=== PATIENT | female | born 1985 | race Caucasian/White ===

== ENCOUNTER 2025-07-03 20:19 | Outpatient (REF) | payer BC, SELFPAY ==
--- OUTSIDE RECORDS SUMMARY | 2025-07-03 13:00 | XMS_ITS | Encounter Summary ---
Author Organization [facility] Address [address] [place] [address] Care Team Providers Care Tanning Wheel Operator Name Role Phone Unavailable Primary Care Provider Unavailabl e Reason for Visit * ReasonCommentsWell Women Visit Encounter Details DateTypeDepartmentCare Team (Latest Contact Info)Hwdjjgksfth92/22/2025 1:00 PM ESTProcedure Visit [facility] Jose Eduardo TAYLOR [address] [facility] [address] [place], [phone] Bridget Mercer PA [address] [facility] [address] [place], [place] [address] Well woman exam with routine gynecological exam; Encounter for initial prescription of contraceptive pills; Abdominal cramping Social History Tobacco UseTypesPacks/DayYears UsedDateSmoking Tobacco: Some DaysCigarettes Alcohol UseStandard Drinks/WeekCommentsYes0 (1 standard drink = 0.6 oz pure alcohol)1 or 2 drinks on typical day . caffeine: 1-2 cups/day coffee. soda/pop CommentsUnknownSex and Gender InformationValueDate RecordedSex Assigned at BirthNot on fileLegal YwlAbbjsl84/15/2023 6:39 PM EDTGender IdentityNot on fileSexual OrientationNot on filedocumented as of this encounter Last Filed Vital Signs Vital SignReadingTime TakenCommentsBlood Yesnkqts207/7207/03/2025 12:58 PM EST Pulse--Temperature--Respiratory Rate--Oxygen Saturation--Inhaled Oxygen Concentration--Jsjihp41.1 kg (174 lb 6.4 oz)07/03/2025 12:58 PM ESTHeight--Body Mass Index35.221 9:47 AM EDTdocumented in this encounter Progress Notes * KATELYN Gaines - 07/03/2025 1:00 PM EST Reason for Appointment: Patient ID: Sunni Burger is a 40 y.o. female who presents for [facility] Women Visit Patient presents today for Annual Exam. MEDICATIONS No current outpatient medications ALLERGIES No Known Allergies PROBLEMS Active Ambulatory Problems Diagnosis Date Noted Difficulty walking 01/08/2023 Resolved Ambulatory Problems Diagnosis Date Noted No Resolved Ambulatory Problems Past Medical History: Diagnosis Date Gonorrhea Obesity (BMI 30-39.9) HISTORY PAST MEDICAL HISTORY SOCIAL HISTORY Past Medical History: Diagnosis Date Gonorrhea Obesity (BMI 30-39.9) Social History Tobacco Use Smoking status: Some Days Types: Cigarettes Smokeless tobacco: Not on file Substance Use Topics Alcohol use: Yes Comment: 1 or 2 drinks on typical day . caffeine: 1-2 cups/day coffee. soda/pop Drug use: Never FAMILY HISTORY Family History Problem Relation Name Age of Onset Other (gallbladder taken out) Mother Other (gallbladder taken out) Father Cancer Maternal Grandfather SURGICAL HISTORY Past Surgical History: Procedure Laterality Date CT ANGIOGRAM HEART CORONARY 08/09/2021 CT ANGIOGRAM TAVR 08/09/2021 PAP SMEAR 12/2018 WNL-HPV TONSILLECTOMY REVIEW OF SYSTEMS Review of Systems: Review of Systems All other systems reviewed and are negative. OBJECTIVE Objective: Physical Exam Constitutional: Appearance: Normal appearance. She is well-developed. Genitourinary: Vulva normal. Right Adnexa: not tender and no mass present. Left Adnexa: not tender and no mass present. No cervical discharge. Breasts: Breasts are soft. Right: Normal. Left: Normal. HENT: Head: Normocephalic. Nose: Nose normal. Mouth/Throat: Mouth: Mucous membranes are moist. Cardiovascular: Rate and Rhythm: Normal rate and regular rhythm. Pulmonary: Effort: Pulmonary effort is normal. Breath sounds: Normal breath sounds. Abdominal: General: Bowel sounds are normal. There is no distension. Palpations: Abdomen is soft. Tenderness: There is no abdominal tenderness. There is no guarding or rebound. Musculoskeletal: General: No swelling. Normal range of motion. Cervical back: Normal range of motion. Right lower leg: No edema. Left lower leg: No edema. Neurological: General: No focal deficit present. Mental Status: She is alert and oriented to person, place, and time. Skin: General: Skin is warm and dry. Psychiatric: Mood and Affect: Mood normal. Behavior: Behavior normal. Vitals and nursing note reviewed. Exam conducted with a brusher machine present. Vitals: Estimated body mass index is 35.22 kg/m?? as calculated from the following: Height as of 05/12/23: 4' 11 . Weight as of this encounter: 174 lb 6.4 oz. BP: 110/72 Patient's last menstrual period was 05/18/2025. Assessment/Plan ICD-10-CM 1. Well woman exam with routine gynecological exam Z01.419 Pap Smear HPV DNA probe, amplified 2. Encounter for initial prescription of contraceptive pills Z30.011 POCT , urine manuallyresulted Assessment/Plan Annual Exam: Patient presents today for an annual exam. Patient states she is doing well and has no complaints. Pap was obtained without difficulty. Patient does want to discuss OCP and periods starting to be irregular and weird cramps that are lower abdominal and wrap around to butt area does happen often. Will start oral control. Orders Placed This Encounter Procedures HPV DNA probe, amplified POCT , urine manually resulted Follow Up: Patient is to return in one year for annual unless needed otherwise. Documented by Paula Navarro LPN on behalf of: KATELYN Gaines documented in this encounter Plan of Treatment DateTypeDepartmentCare Team (Latest Contact Info)Qrobfntexcj65/04/2027 10:00 AM ESTProcedure Visit [facility] Jose Eduardo OBGYJeanie [address] [place] [address] Bridget Mercer PA [address] [facility] [place] [address] NameTypePriorityAssociated DiagnosesOrder SchedulePap SmearPathology and CytologyRoutine Well woman exam with routine gynecological exam Ordered: 07/03/2025HPV DNA probe, amplifiedMicrobiologyRoutine Well woman exam with routine gynecological exam Ordered: 07/03/2025US Pelvis w/ TVImagingRoutine Abdominal cramping Expected: 07/03/2025, Expires: 01/01/2026documented as of this encounter Procedures Procedure NamePriorityDate/TimeAssociated DiagnosisCommentsPOCT , URINE Socrjug7407/03/2025 1:06 PM EST Encounter for initial prescription of contraceptive pills documented in this encounter Results * POCT , urine manually resulted (07/03/2025 1:06 PM EST)ComponentValue Ref RangeTest MethodAnalysis TimePerformed AtPathologist SignaturePreg Test, UrNegativeNegativeSpecimen (Source)Anatomical Location / LateralityCollection Method / VolumeCollection TimeReceived FvvoWamar08/22/2025 1:06 PM EST Narrative Authorizing ProviderResult TypeResult StatusAmy [place] PAPOINT OF CARE TEST ENTER/EDIT ORDERABLESFinal Result documented in this encounter Visit Diagnoses Diagnosis Well woman exam with routine gynecological exam Routine gynecological examination Encounter for initial prescription of contraceptive pills Abdominal cramping Abdominal pain, unspecified site documented in this encounter
--- OUTSIDE RECORDS SUMMARY | 2025-07-03 20:24 | XMS_ITS | Encounter Summary ---
Author Organization [facility] Address [address] [place] [address] Care Team Providers Care Registrar Assistant Name Role Phone Unavailable Primary Care Provider Unavailabl e Encounter Details DateTypeDepartmentCare Team (Latest Contact Info)Krzkwflsvev10/15/2025Travel Social History Tobacco UseTypesPacks/DayYears UsedDateSmoking Tobacco: Some DaysCigarettes Alcohol UseStandard Drinks/WeekCommentsYes0 (1 standard drink = 0.6 oz pure alcohol)1 or 2 drinks on typical day . caffeine: 1-2 cups/day coffee. soda/pop CommentsNoSex and Gender InformationValueDate RecordedSex Assigned at BirthNot on fileLegal ZcrKcxeng40/15/2023 6:39 PM EDTGender IdentityNot on file Sexual OrientationNot on filedocumented as of this encounter Plan of Treatment DateTypeDepartmentCare Team (Latest Contact Info)Ecauqemnrck87/04/2027 10:00 AM ESTProcedure Visit CAIO TAYLOR [address] [facility] [place] [address] Bridget Mercer PA [address] [facility] [place] [address] documented as of this encounter Visit Diagnoses Not on filedocumented in this encounter
--- OUTSIDE RECORDS SUMMARY | 2025-07-03 20:24 | XMS_ITS | Clinical Summary ---
Author Organization [facility] Address [address] [place] [address] Care Team Providers Care Branch Operations Coordinator Name Role Phone Unavailable Primary Care Provider Unavailabl e Allergies No known active allergies Medications MedicationSigDispense QuantityRefillsLast FilledStart DateEnd DateStatus desogestrel-ethinyl estradiol (Apri) 0.15-30 MG-MCG tablet Indications:Encounter for initial prescription of contraceptive pillsTake 1 tablet by mouth Daily Take 1 tablet by mouth daily 28 tablet 111501/6Active desogestrel-ethinyl estradiol (Apri) 0.15-30 MG-MCG tablet Indications: control counselingTake 1 tablet by mouth in the morning. 28 tablet Discontinued medroxyPROGESTERone (Depo-Provera) 150 MG/ML suspension prefilled syringe injection syringe Indications: control counselingINJECT ONE SYRINGE INTRAMUCULARLY EVERY 3 MONTHS 1 mL Discontinued Active Problems ProblemNoted DateDiagnosed DateDifficulty vinozxx7801/08/2023 Encounters DateTypeDepartmentCare UjqgYjkuzfouene24/22/2025 1:00 PM ESTProcedure Visit CAIO [place]AYLOR [address] [place] [address] Bridget Mercer PA Well woman exam with routine gynecological exam; Encounter for initial prescription of contraceptive pills; Abdominal zbxezoyr94/22/2025amboo flowsheet CAIO TAYLOR [address] [place] [phone] Bridget Mercer PA 06/26/2025Travelfrom Last 3 Months Family History Medical HistoryRelationNameCommentsgallbladder taken outFatherCancerMaternal Grandfathergallbladder taken outMotherRelationNameStatusCommentsFatherAlive Maternal GrandfatherMotherAlivePaternal GrandfatherDeceasedPaternal Grandmother DeceasedSon(2)Alive Social History Tobacco UseTypesPacks/DayYears UsedDateSmoking Tobacco: Some DaysCigarettes Tobacco Cessation:Ready to Q uit: Not Asked; Counseling Given: Not Answered Alcohol UseStandard Drinks/WeekCommentsYes0 (1 standard drink = 0.6 oz pure alcohol)1 or 2 drinks on typical day . caffeine: 1-2 cups/day coffee. soda/pop CommentsUnknownSex and Gender InformationValueDate RecordedSex Assigned at BirthNot on fileLegal FsfRjvnfj33/15/2023 6:39 PM EDTGender IdentityNot on fileSexual OrientationNot on file Last Filed Vital Signs Vital SignReadingTime TakenCommentsBlood Losmeaid764/7207/03/2025 12:58 PM EST Pulse--Temperature--Respiratory Rate--Oxygen Saturation--Inhaled Oxygen Concentration--Onhbnz38.1 kg (174 lb 6.4 oz)07/03/2025 12:58 PM DTHDuzztt696.9 cm (4' 11 )05/12/2023 9:47 AM EDTBody Mass Index35.221 9:47 AM EDT Plan of Treatment DateTypeDepartmentCare Team (Latest Contact Info)Zzwxhdtohyq10/04/2027 10:00 AM ESTProcedure Visit [facility] Marni TAYLOR [address] [place] [phone] Bridget Mercer PA [address] [facility] [address] [place], [place] [address] Procedures Procedure NamePriorityDate/TimeAssociated DiagnosisCommentsPOCT , URINE Pjjjxgk1007/03/2025 1:06 PM EST Encounter for initial prescription of contraceptive pills from Last 3 Months Results * POCT , urine manually resulted (07/03/2025 1:06 PM EST)ComponentValue Ref RangeTest MethodAnalysis TimePerformed AtPathologist SignaturePreg Test, UrNegativeNegativeSpecimen (Source)Anatomical Location / LateralityCollection Method / VolumeCollection TimeReceived FlscQlkne11/22/2025 1:06 PM EST Narrative Authorizing ProviderResult TypeResult StatusAmy [place] PAPOINT OF CARE TEST ENTER/EDIT ORDERABLESFinal Result from Last 3 Months Insurance
--- OUTSIDE RECORDS SUMMARY | 2025-07-03 20:24 | XMS_ITS | Encounter Summary ---
Author Organization [facility] Address [address] [facility] [address] Care Team Providers Care Electroencephalogram Technologist Name Role Phone Unavailable Primary Care Provider Unavailabl e Encounter Details DateTypeDepartmentCare Team (Latest Contact Info)Useqhcrhuwq83/22/2025amboo flowsheet CAIO TAYLOR [address] [facility] [place] [address] Bridget Mercer PA [address] [place] [address] [address] [place], [facility] Social History Tobacco UseTypesPacks/DayYears UsedDateSmoking Tobacco: Some DaysCigarettes Alcohol UseStandard Drinks/WeekCommentsYes0 (1 standard drink = 0.6 oz pure alcohol)1 or 2 drinks on typical day . caffeine: 1-2 cups/day coffee. soda/pop CommentsUnknownSex and Gender InformationValueDate RecordedSex Assigned at BirthNot on fileLegal TyoSqykuh14/15/2023 6:39 PM EDTGender IdentityNot on fileSexual OrientationNot on filedocumented as of this encounter Plan of Treatment DateTypeDepartmentCare Team (Latest Contact Info)Efofykildml65/04/2027 10:00 AM ESTProcedure Visit CAIO TAYLOR [address] [facility] [place] [address] Bridget Mercer, PA [address] [place] [address] documented as of this encounter Visit Diagnoses Not on filedocumented in this encounter
--- OUTSIDE RECORDS SUMMARY | 2025-07-03 20:25 | XMS_ITS | Clinical Summary ---
Author Organization [facility] tem Address [id number] [address] [place] [address] Care Team Providers Care Painter Airbrush Name Role Phone Services, [facility] Primary Care Provider Allergies No known active allergies Medications MedicationSigDispense QuantityRefillsLast FilledStart DateEnd DateStatus albuterol (PROVENTIL HFA;VENTOLIN HFA) 90 mcg/actuation inhaler Indications:WheezingInhale 2 puffs every 4 (four) hours as needed for wheezing. 18 g 2Active acetaminophen (TYLENOL) 500 mg tablet Take 1 tablet (500 mg total) by mouth every 6 (six) hours as needed for pain. 30 tablet 2Active Social History Tobacco UseTypesPacks/DayYears UsedDateSmoking Tobacco: QkauluKtvrljavja0Bwli: 01/05/2021mokeless Tobacco: NeverAlcohol UseStandard Drinks/WeekCommentsYes0 (1 standard drink = 0.6 oz pure alcohol)ChildcareAnswerDate RecordedChildcare Dtamfuz4112/22/2018EmploymentAnswerDate BnpgnulkLivfilsukpXxtmbyb41/12/2019Hunger ScreeningAnswerDate RecordedWithin the past 12 months we worried whether our food would run out before we got money to buy more.Never True06/29/2024Within the past 12 months the food we bought just didn't last and we didn't have money to get more.Never True4CommentsNoSex and Gender Information ValueDate RecordedSex Assigned at BirthNot on fileLegal ZydUfqcmk70/06/2015 11:49 AM EDTGender IdentityNot on fileSexual OrientationNot on file Last Filed Vital Signs Vital SignReadingTime TakenCommentsBlood Vpkpvqxl017/7406/29/2024 8:52 AM EST Otwnw635106/29/2024 8:38 AM CFLUcupnqgvvnq96.7 ??C (98.1 ??F)06/29/2024 8:38 AM ESTRespiratory Dann911008/30/2023 8:38 AM ESTOxygen Nmpdlfofmx20%06/29/2024 8:57 AM ESTInhaled Oxygen Concentration--Iooddp40.1 kg (170 lb)06/29/2024 8:38 AM EST Ykotmb330.9 cm (4' 11 )06/29/2024 8:38 AM ESTBody Mass Index34.34108/30/2023 8:38 AM EST Plan of Treatment Health MaintenanceDue DateLast DoneCommentsDepression Aimxnuxir44/03/1999Tobacco Hsggvmhgy38/03/1999DTaP,Tdap and Td Vaccines (1 - Tdap)2006Pap Smear 2008Influenza Nwzrdgl17/01/2025Adult BMI Kpzolffab31 Medical Devices Not on file Insurance Care Teams Team MemberRelationshipSpecialtyStart DateEnd [facility], [place] [id number] Naldo Pereira [place], [place] PCP - GeneralFamily Lxhxbogm24/18/24
--- OUTSIDE RECORDS SUMMARY | 2025-07-03 20:25 | XMS_ITS | Patient Health Record ---
Author Organization [facility] vices Address [address] [place], [place] [address] Support Name Relationship Address Phone Verona Singh Emergency Contact [address] [place] [phone] Sunni Burger Guarantor Unknown Allergies No Known Allergies Reason For Referral No Information Medications Medication SIG (Take, Route, Frequency, Duration) Notes Start Date End Date Status Melatonin 3 MG Tablet 1 tablet at bedtim e as needed Orally Once a day; Duration: 30 day(s) 2ActiveGabapentin 300 MG Capsule1 capsule Orally Once a day; Duration: 30 day(s)2ActiveNorethindrone Acet-Ethinyl Est 1-20 MG-MCG Tablet1 tablet Orally Once a day; Duration: 84 DaysActive Social History Tobacco Use: Social History Observation Description Date Details (start date - stop date) Current Smoker NA - NA Sex Assigned At : Social History Observation Description Sex Assigned At Female Social History Drugs/Alcohol/Caffeine:Social InfoQuestionAnswerNotesDrugsHave you used drugs other than those for medical reasons in the past 12 months?NoCaffeineIntake: DailyTobacco Use:Social InfoQuestionAnswerNotesTobacco Use/SmokingTobacco use: current every day smokerAdditional DetailsCategorySocial InfoOptionsDetails Miscellaneous:Culture/Language BarrierNoEducation LevelGrade 1-6, Grade 7-12 Barriers to LearningNoneLearning PreferenceWatching a videoHow often do you need to have someone help you read instructionsNeverSafetyPatient feels safe in relationshipsYesDrugs/Alcohol/Caffeine:Do you drink alcohol?No Problems Problem Type SNOMED Code ICD Code Onset Dates Problem Status W/U Status Risk Notes Problem 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) ActiveconfirmedProblemFibromyalgia (318968960)Fibromyalgia (M79.7)Active confirmed Comment:has generalized body pain, many yearws, with tiredness needs assessment for CRISTOFER ProblemFatigue (15690738)Fatigue (R53.83)ActiveconfirmedProblemCurrent smoker (88537804)Current smoker (F17.200)ActiveconfirmedProblemOverweight (013680137) Overweight with body mass index (BMI) 25.0-29.9 (E66.3)Activeconfirmed Description:Overweight (BMI 25.0-29.9)ProblemHuman immunodeficiency virus (HIV) screening (992167435)Screening for human immunodeficiency virus without presence of risk factors (Z11.4)ActiveconfirmedDescription:Screening for HIV without presence of risk factorsProblemDyspnea (588405366)SOB (shortness of breath) (R06.02)Activeconfirmed Comment:needs PFT next time,Story:due to deconditioning, smoking has Hx of asthma as kid, ProblemHypersomnia (74011905)Hypersomnolence (G47.10)ActiveconfirmedStory:needs testing for sleep study due to fatigue and tiredness, Plan Of Treatment No Information Insurance Providers Payer Name Payer Address Payer Phone Subscriber Number Group Number Insured Name Patient Relationship to Insured Coverage Start Date Coverage End Date Anoop Odellbs [address] [place], [place] [id number] Sunni Burger Self - patient is the insured 0 Medical (General) History Surgical History Surgery Date(Month/Year)
== END 2025-07-03 20:20 | disposition home or self-care (01) ==
LOC: LAB 20:19
PROVIDERS: Visit Provider Physician Assistant
DX: Z01.419 Encounter for gynecological examination (general) (routine) without abnormal findings (principal)
CPT/HCPCS: 88175